=== PATIENT | male | born 1970 | race Caucasian/White ===

== ENCOUNTER → 2018-09-25 12:54 | Outpatient (CLI) | payer OTHER, SELFPAY ==
--- NOTE | 2018-09-25 13:04 | XR_ITS ---
PROCEDURE: XR ELBOW LT MIN 3V CLINICAL INDICATION: left elbow pain COMPARISON: No exams were available for comparison FINDINGS: No fracture or dislocation. No lytic or blastic change. There is normal mineralization. There are mild osteoarthritic changes with mild bony spurring of the distal ulna, the coracoid process of the humerus, and minimal spurring of the radial head. No displaced fat pad Other findings:None. IMPRESSION: Mild osteoarthritic change, no acute finding Dictated by: Wilbert Dugan MD 09/25/2018 13:32 Signed by: <Electronically signed by Wilbert Dugan MD in [place]> 09/25/2018 13:32
== END ==
PROVIDERS: PCP Family Medicine; Visit Provider Orthopaedic Surgery
DX: M25.522 Pain in left elbow (principal)
CPT/HCPCS: 73080